=== PATIENT | male | born 1960 | race African-American/Black ===

== ENCOUNTER 2020-10-14 19:07 | Emergency (ER) | payer OTHER, BC ==
[~2020-10-14] VITALS: Ht 172.7 cm; Wt 90.7 kg
[~2020-10-14 19:07] MED LIST: CARAFATE 11 GM/10 M1 GT; PRILOSEC 20 MG20 MG PO
[2020-10-14] MEDS ORDERED: ALBUTEROL2.5 MG/0.1 INH (19:16)
[2020-10-14 20:39] LABS: ABSOLUTE NEUTROPHILS 4.2 thou/uL (1.4-8.2); BASOPHILS 0.5 % (0.0-2.0); EOSINOPHILS 2.1 % (0.0-3.0); HEMATOCRIT 37.9 % (42.0-52.0); HEMOGLOBIN 12.6 gm/dL (14.0-18.0); MCHC 33.3 g/dL (28.0-37.0); MCV 90.1 fL (80.0-100.0); MONOCYTES 9.1 % (1.0-8.0); PLATELET COUNT 242 thou/uL (150-400); POLYS 67.3 % (36.0-66.0); RDW 13.6 % (10.5-14.5); WBC 6.3 thou/uL (4.0-11.0)
[2020-10-14 20:46] LABS: CALCIUM 8.5 mg/dL (8.5-10.1); POTASSIUM 4.1 mmol/L (3.5-5.1)
[2020-10-14 20:52] LABS: ALBUMIN 3.3 g/dL (3.4-5.0); TOTAL PROTEIN 7.7 g/dL (6.4-8.2)
[2020-10-14 21:54] LABS: URINE BILIRUBIN NEGATIVE (Negative); URINE BLOOD NEGATIVE (Negative); URINE CLARITY CLEAR; URINE COLOR YELLOW; URINE GLUCOSE-RANDOM* NEGATIVE (Negative); URINE KETONES NEGATIVE (Negative); URINE LEUKOCYTES-REFLEX NEGATIVE (Negative); URINE NITRITE-REFLEX NEGATIVE (Negative); URINE PROTEIN (DIPSTICK) NEGATIVE (Negative); URINE SPECIFIC GRAVITY >= 1.030 (1.005-1.035); URINE UROBILINOGEN 0.2 E.U./dl (0.2-1.0)
[2020-10-14] MEDS ORDERED: ULTRAM 50MG TAB50 MG PO (22:07)
[2020-10-14 22:45] VITALS: BP 167/98
== END 2020-10-14 22:45 | disposition home or self-care (01) ==
LOC: ER 19:07
PROVIDERS: Nurse Practitioner
DX: S09.90XA Unspecified injury of head, initial encounter (principal); M79.642 Pain in left hand; M25.552 Pain in left hip; M54.5 Low back pain; M25.572 Pain in left ankle and joints of left foot; M79.645 Pain in left finger(s); J45.909 Unspecified asthma, uncomplicated; Z79.899 Other long term (current) drug therapy; Z91.018 Allergy to other foods; Z88.0 Allergy status to penicillin; W11.XXXA Fall on and from ladder, initial encounter; Y93.89 Activity, other specified; Y92.89 Other specified places as the place of occurrence of the external cause; Y99.8 Other external cause status